=== PATIENT | male | born 1980 | race Caucasian/White ===

== ENCOUNTER 2018-01-13 12:13 | Emergency (ER) | payer OTHER, SELFPAY ==
[~2018-01-13] VITALS: Ht 188 cm; Wt 122.5 kg
[2018-01-13 12:48] LABS: ABSOLUTE BASOPHILS 0.1 thou/uL (0.0-0.2); ABSOLUTE EOSINOPHILS 0.1 thou/uL (0.0-0.7); ABSOLUTE LYMPHOCYTES 1.5 thou/uL (0.8-5.3); ABSOLUTE MONOCYTES 0.6 thou/uL (0.0-1.2); BASOPHILS 1.1 %; HEMATOCRIT 46.8 % (42.0-52.0); HEMOGLOBIN 15.7 gm/dL (14.0-18.0); MCH 29.3 pg (26.0-34.0); MCHC 33.6 g/dL (28.0-37.0); MCV 87.1 fL (80.0-100.0); MPV 7.8 fl. (7.2-11.1); NUCLEATED RBCS 0 /100WBC; PLATELET COUNT* 232 thou/uL (150-400); POLYS 55.9 %; RBC 5.37 mil/uL (4.50-6.00); RDW-CV 13.1 % (10.5-14.5); WBC 5.3 thou/uL (4.0-11.0)
[2018-01-13 12:51] LABS: ANION GAP 9 mmol/L (7-16); BUN 11 mg/dL (7-18); CALCIUM 8.8 mg/dL (8.5-10.1); CHLORIDE 100 mmol/L (98-107); CO2 26 mmol/L (21-32); CREATININE 0.7 mg/dL (0.6-1.3); GLUCOSE 116 mg/dL (70-99); SODIUM 135 mmol/L (136-145)
[2018-01-13 13:06] LABS: ALKALINE PHOSPHATASE 75 U/L (46-116); LIPASE 159 U/L (73-393); SGOT 23 U/L (15-37); SGPT 51 U/L (30-65); TOTAL BILIRUBIN 0.8 mg/dL (<0.1-1.0); TOTAL PROTEIN 7.4 g/dL (6.4-8.2); TROPONIN-I LEVEL <0.06 ng/mL (<0.06)
[2018-01-13 13:07] LABS: APTT 28.2 Seconds (25.0-31.3)
[2018-01-13 15:36] VITALS: BP 123/92
--- NOTE | 2018-01-13 16:31 | EKG ---
[place] [address] ELECTROCARDIOGRAM REPORT Name: JF WARE [facility] [id number] Admission: 01/13/18 Attend Phys: Discharge: 01/13/18 Date of : 80 Report #: [id number] THIS REPORT FOR: //name// [facility] ED Test Date: 2018-01-13 Test Time: 12:16:42 Pat Name: JF WARE Department: Room: Gender: M Hospital Sales Representative: : 1980 Requested By: Lisbeth Velasco Order Number: [id number] MD: Sharath Brambila Measurements Intervals [place] Rate: 68 P: 24 [place]: 185 QRS: 27 QRSD: 118 T: 25 QT: 391 QTc: 416 Interpretive Statements Sinus rhythm Nonspecific intraventricular conduction delay ST elev, probable normal early repol pattern No previous ECG available for comparison Electronically Signed On 01-13-2018 16:30:51 CDT by Sharath Brambila [email or web address] <ELECTRONICALLY SIGNED> By: Sharath Brambila MD, [facility] 01/13/18 1630 1216 1216 Sharath Brambila MD, FACC /EPI
--- NOTE | 2018-01-14 10:44 | EKG ---
[place] [address] ELECTROCARDIOGRAM REPORT Name: JF WARE Room: [facility]#: [id number] Admission: 01/13/18 Attend Phys: Discharge: 01/13/18 Date of : 80 Report #: [id number] THIS REPORT FOR: //name// [facility] ED Test Date: 2018-01-13 Test Time: 14:16:00 Pat Name: JF WARE Department: Room: Gender: M Object Oriented Developer: Ronaldo RECINOS : 1980 Requested By: Lisbeth Velasco Order Number: [id number] MD: Erich Howell Measurements Intervals [place] Rate: 65 P: 8 [place]: 185 QRS: 24 QRSD: 112 T: 21 QT: 408 QTc: 425 Interpretive Statements Sinus rhythm Borderline intraventricular conduction delay ST elev, probable normal early repol pattern Compared to ECG 01/13/2018 12:16:42 No significant changes Electronically Signed On 01-14-2018 10:44:17 CDT by Erich Howell [email or web address] <ELECTRONICALLY SIGNED> By: Erich Howell MD, [facility] 01/14/18 1044 1416 1416 Erich Howell MD, [facility] /EPI
== END 2018-01-13 15:36 | disposition home or self-care (01) ==
LOC: M.ERS 12:13
PROVIDERS: Nurse Practitioner Family
DX: R07.89 Other chest pain (principal)

== ENCOUNTER → 2018-01-21 | Outpatient (CLI) | payer OTHER, SELFPAY ==
--- NOTE | 2018-01-23 13:04 | TST ---
[address] [address] [place] STRESS TEST Name: JF WARE Room: [facility]#: [id number] Admission: 01/21/18 Attend Phys: Tamika Hurtado Discharge: Date of : 80 Date of Service: 01/21/18 1209 Report #: [id number] THIS REPORT FOR: //name// CC: [facility] Tamika Shanda Fonsecacharleyopal Osullivan DATE OF SERVICE: 01/21/2018 INDICATIONS: Exercise stress test was requested in this patient with a history of palpitations. PROCEDURE: The patient was exercised on a Osbaldo protocol for a total of 80 minutes and 59 seconds. RESULTS: The patient had a pretest heart rate of 86, blood pressure 154/81. At peak exercise, the patient had a heart rate of 182, which was greater than 90% of maximum predicted heart rate for the patient's age. Peak blood pressure was 170/92. In recovery, the patient had heart rate of 90, blood pressure 122/80. The patient denied chest pain with exercise, which was terminated because of fatigue. The patient's resting ECG showed a normal sinus rhythm with no significant ST or T-wave change. With exercise, there were no arrhythmias noted. There were no ischemic ST or T-wave change is noted with exercise. There was a rare PVC noted during recovery. IMPRESSION: 1. Adequate exercise tolerance. 2. No chest pain with exercise. 3. No ischemic ST segment changes noted with exercise. 4. Negative exercise stress test for myocardial ischemia. 5. This test is considered low risk for future cardiac events. <ELECTRONICALLY SIGNED> By: Elfego Schmidt MD, FACC 01/23/18 1304 1209 1841 Robert Campos MD, FACC /nt
--- NOTE | 2018-01-24 18:07 | 24HR ---
[place] [address] HOLTER MONITOR REPORT Name: JF WARE Room: [facility]#: [id number] Admission: 01/21/18 Attend Phys: Tamika Hurtado Discharge: Date of : 80 Date of Service: 01/24/18 1052 Report #: [id number] THIS REPORT FOR: //name// [facility] Test Date: 2018-01-24 Test Time: 10:52:39 Pat Name: JF WARE Department: Room: Gender: Teaching Fellow: : 1980 Requested By: Tamika Land Order Number: [id number] MD: Robert Campos Interpretive Statements Electronically Signed On 01-24-2018 18:07:14 CDT by Robert Campos [email or web address] <ELECTRONICALLY SIGNED> By: Robert Campos MD, [facility] 01/24/18 1807 1052 1052 Robert Campos MD, [facility] /EPI
--- NOTE | 2018-01-28 08:11 | 24HR ---
[address] [address] HOLTER MONITOR REPORT Name: JF WARE Room: [facility]#: [id number] Admission: 01/21/18 Attend Phys: Tamika Hurtado Discharge: Date of : 80 Date of Service: 01/24/181809 Report #: [id number] THIS REPORT FOR: //name// CC: Tamika LAUP Samy Osullivan INTERPRETATION: A 24-hour Holter monitor. INDICATIONS: Palpitations. Holter monitoring was performed for 48 hours. A diary was submitted with the Holter monitor, but no symptoms recorded. IMPRESSION: 1. Predominantly sinus rhythm with episodes of sinus bradycardia and sinus tachycardia. 2. Rare premature ventricular contraction with a 3-beat run of ventricular tachycardia noted. 3. Rare premature atrial contraction. <ELECTRONICALLY SIGNED> By: Robert Campos MD, FAC 01/28/18 0811 181 182 Robert Campos MD, FAC /nt
== END ==
LOC: M.CRD
DX: R00.0 Tachycardia, unspecified (principal); R00.1 Bradycardia, unspecified; R94.31 Abnormal electrocardiogram [ECG] [EKG]